=== PATIENT | female | born 1950 | race Caucasian/White ===

== ENCOUNTER 2023-09-29 23:58 | Inpatient (IN) | payer OTHER ==
[~2023-09-29] VITALS: Ht 160 cm; Wt 74.8 kg
[2023-09-30 00:15] VITALS: BP 152/84; PULSE 70; RESP 16; TEMP 97.4; O2SAT 97
[2023-09-30] MEDS ORDERED: ATROPINE 1 MG/10 ML SYR IVP ONE (00:28)
[2023-09-30 00:50] LABS: BASOPHILS % (AUTO) 0.4 % (0.0-2.0); EOSINOPHILS # (AUTO) 0.1 K/uL (0-0.4); HEMATOCRIT 38.9 % (36-48); LYMPHOCYTES # (AUTO) 3.5 K/uL (2.5-16.5); LYMPHOCYTES % (AUTO) 31.2 % (20.5-51.1); MEAN CORPUSCULAR HEMOGLOBIN 30 pg (27-31); MEAN CORPUSCULAR HGB CONC 34 g/dL (33-37); MEAN CORPUSCULAR VOLUME 90.3 fL (80-94); MONOCYTES % (AUTO) 8.5 % (1.7-9.3); NEUTROPHILS # (AUTO) 6.6 K/uL (1.8-7.7); NEUTROPHILS % (AUTO) 58.9 % (42.2-75.2); PLATELET COUNT (AUTO) 215 K/uL (140-450); RED BLOOD CELL COUNT(AUTO) 4.31 MIL/uL (4.20-5.40); RED CELL DISTRIBUTION WIDTH 13.5 % (11.6-13.7); WHITE BLOOD COUNT (AUTO) 11.3 K/uL (4.8-10.8)
[2023-09-30 01:01] LABS: ANION GAP 10.1 (8-16); CALCIUM 9.2 mg/dL (8.5-10.1); CARBON DIOXIDE 34.1 mmol/L (21-32); CHLORIDE 100 mmol/L (98-107); CREATININE 0.8 mg/dL (0.6-1.3); GLUCOSE 148 mg/dL (74-106); POTASSIUM 3.2 mmol/L (3.5-5.1); SODIUM SERUM 141 mmol/L (136-145); UREA NITROGEN, BLOOD 19 mg/dL (7-18)
[2023-09-30 01:10] LABS: MAGNESIUM 1.9 mg/dL (1.8-2.4)
[2023-09-30] MEDS ORDERED: NACL 0.9% 1,000 ML IV ONE (01:10)
[2023-09-30 02:57] LABS: APPEARANCE,URINE CLEAR (CLEAR); BILIRUBIN,URINE NEGATIVE (NEGATIVE); BLOOD, URINE NEGATIVE (NEGATIVE); COLOR,URINE YELLOW (YELLOW); LEUKOCYTE ESTERASE ,URINE TRACE (NEGATIVE); NITRITE, URINE NEGATIVE (NEGATIVE); PROTEIN,URINE NEGATIVE (NEGATIVE); UGLUCOSE 3+ (NEGATIVE); UROBILINOGEN,URINE 0.2 EU/dL (0.2 - 1)
[2023-09-30 03:01] LABS: BACTERIA,URINE 10-30 (MOD) /HPF (None Seen); MUCUS,URINE 1+ /LPF (None Seen); RBC,URINE 0-5 /HPF (0-5); SQUAMOUS EPITHELIAL CELL,UR 4-10 (MOD) /LPF (0-3 (FEW))
[2023-09-30] MEDS ORDERED: POTASSIUM CHLORIDE 10 MEQ TABER PO ONE ×2 (03:15→04:35)
[2023-09-30] MEDS ORDERED: GLIP10TE PO (03:21)
[2023-09-30] MEDS ORDERED: ATOR40TA PO (03:21)
[2023-09-30] MEDS ORDERED: KEP500 PO (03:21)
[2023-09-30] MEDS ORDERED: METF-1139 PO (03:21)
[2023-09-30] MEDS ORDERED: METO25TE2 PO (03:21)
[2023-09-30] MEDS ORDERED: EMPA25TA PO (03:21)
[2023-09-30 03:32] LABS: LACTIC ACID 1.9 mmol/L (0.4-2.0)
[2023-09-30] MEDS ORDERED: cefTRIAXone 1,000 MG VIAL ONE (04:34)
[2023-09-30 05:19] VITALS: O2SAT 100
[2023-09-30] MEDS: HYDROcodone/APAP 5/325 MG 1 TAB TAB PO PRN (12:53)
[2023-09-30 15:29] VITALS: PULSE 68; RESP 15
[2023-09-30 16:04] VITALS: PULSE 72
[2023-09-30] MEDS ORDERED: DEXTROSE 50% 50 ML SYR IVP PRN (17:15)
[2023-09-30 20:00] VITALS: BP 128/70; PULSE 66; PULSE 67; RESP 15; RESP 18; TEMP 97.9; O2SAT 95
[2023-09-30] MEDS: levETIRAcetam 500 MG TAB PO SCH (20:11)
[2023-09-30] MEDS: BLOOD GLUCOSE MONITORING 1 DEV DEV FS SCH (20:17)
[2023-09-30] MEDS: INSULIN LISPRO SLIDING SCALE 100 UNITS/ML VIAL SUBQ PRN (20:22)
[2023-10-01] VITALS: BP 125/68; PULSE 66; PULSE 67; RESP 18; TEMP 97.7; O2SAT 97
[2023-10-01 04:00] VITALS: BP 137/69; PULSE 67; PULSE 76; RESP 18; TEMP 97.7; O2SAT 97
[2023-10-01] MEDS: HYDROcodone/APAP 5/325 MG 1 TAB TAB PO PRN ×2 (04:03→17:46)
[2023-10-01 06:47] LABS: BASOPHILS % (AUTO) 0.4 % (0.0-2.0); EOSINOPHILS # (AUTO) 0.2 K/uL (0-0.4); EOSINOPHILS % (AUTO) 2.6 % (0.0-4.0); HEMOGLOBIN 12.5 g/dL (12.0-16.0); LYMPHOCYTES # (AUTO) 2.9 K/uL (2.5-16.5); LYMPHOCYTES % (AUTO) 37.2 % (20.5-51.1); MEAN CORPUSCULAR HEMOGLOBIN 31 pg (27-31); MEAN CORPUSCULAR HGB CONC 34 g/dL (33-37); MEAN CORPUSCULAR VOLUME 90.2 fL (80-94); MONOCYTES # (AUTO) 0.7 K/uL (0.8-1.0); MONOCYTES % (AUTO) 9.3 % (1.7-9.3); NEUTROPHILS # (AUTO) 3.9 K/uL (1.8-7.7); NEUTROPHILS % (AUTO) 50.5 % (42.2-75.2); PLATELET COUNT (AUTO) 214 K/uL (140-450); RED CELL DISTRIBUTION WIDTH 13.8 % (11.6-13.7); WHITE BLOOD COUNT (AUTO) 7.8 K/uL (4.8-10.8)
[2023-10-01] MEDS: BLOOD GLUCOSE MONITORING 1 DEV DEV FS SCH ×4 (06:52→20:10)
[2023-10-01] MEDS: INSULIN LISPRO SLIDING SCALE 100 UNITS/ML VIAL SUBQ PRN ×2 (06:53→20:12)
[2023-10-01 08:00] VITALS: BP 127/58; PULSE 68; RESP 15; RESP 18; TEMP 96.9; O2SAT 96
[2023-10-01] MEDS: METOPROLOL SUCCINATE 50 MG TABER PO SCH (08:25)
[2023-10-01] MEDS: levETIRAcetam 500 MG TAB PO SCH ×2 (08:26→20:08)
[2023-10-01] MEDS: ATORVASTATIN 20 MG TAB PO SCH (08:26)
[2023-10-01] MEDS: ASPIRIN 81 MG TAB.CHEW PO SCH (08:27)
[2023-10-01 09:38] LABS: ALANINE AMINOTRANSFERASE 17 U/L (12-78); ALBUMIN 2.9 g/dL (3.4-5.0); ALKALINE PHOSPHATASE 67 U/L (50-136); ANION GAP 16.4 (8-16); ASPARTATE AMINOTRANSFERASE 12 U/L (15-37); CALCIUM 9.1 mg/dL (8.5-10.1); CARBON DIOXIDE 23.6 mmol/L (21-32); CHLORIDE 104 mmol/L (98-107); CREATININE 0.5 mg/dL (0.6-1.3); GLUCOSE 113 mg/dL (74-106); MAGNESIUM 1.9 mg/dL (1.8-2.4); SODIUM SERUM 140 mmol/L (136-145); TOTAL BILIRUBIN 0.4 mg/dL (0.0-1.0); TOTAL PROTEIN, SERUM 6.6 g/dL (6.4-8.2); UREA NITROGEN, BLOOD 16 mg/dL (7-18)
[2023-10-01 12:00] VITALS: BP 119/61; PULSE 71; RESP 18; TEMP 97.6; O2SAT 96
[2023-10-01 15:53] LABS: CHOL/HDL RATIO 2.4 (1-4.5)
[2023-10-01 16:00] VITALS: BP 120/89; PULSE 71; RESP 18; TEMP 97.8; O2SAT 98
[2023-10-01] MEDS ORDERED: hydrALAZINE 25 MG TAB PO PRN (16:50)
[2023-10-01 20:00] VITALS: BP 116/83; PULSE 70; PULSE 72; RESP 18; TEMP 97.1; O2SAT 96
[2023-10-02] VITALS: BP 141/70; PULSE 70; PULSE 73; RESP 18; TEMP 96.8; O2SAT 96
[2023-10-02 04:00] VITALS: BP 127/81; PULSE 71; PULSE 73; RESP 18; TEMP 96.1; O2SAT 96
[2023-10-02] MEDS: BLOOD GLUCOSE MONITORING 1 DEV DEV FS SCH ×4 (06:36→20:08)
[2023-10-02 08:00] VITALS: BP 121/67; PULSE 62; PULSE 71; PULSE 84; RESP 16; TEMP 97; O2SAT 97
[2023-10-02] MEDS: levETIRAcetam 500 MG TAB PO SCH ×2 (09:29→20:07)
[2023-10-02] MEDS: ASPIRIN 81 MG TAB.CHEW PO SCH (09:29)
[2023-10-02] MEDS: ATORVASTATIN 20 MG TAB PO SCH (09:30)
[2023-10-02] MEDS: METOPROLOL SUCCINATE 50 MG TABER PO SCH (09:30)
[2023-10-02 12:00] VITALS: BP 153/77; PULSE 67; RESP 18; TEMP 97; O2SAT 98
[2023-10-02] MEDS ORDERED: LACTULOSE 20 GM/30 ML UDC PO ONE (14:55)
[2023-10-02 16:00] VITALS: BP 148/75; PULSE 62; PULSE 64; RESP 18; TEMP 97.2; O2SAT 97
[2023-10-02] MEDS: INSULIN LISPRO SLIDING SCALE 100 UNITS/ML VIAL SUBQ PRN (16:44)
[2023-10-02] MEDS: HYDROcodone/APAP 5/325 MG 1 TAB TAB PO PRN (16:45)
[2023-10-02 20:00] VITALS: BP 150/84; PULSE 68; PULSE 72; RESP 18; TEMP 97.3; O2SAT 96
[2023-10-02] MEDS: DOCUSATE SODIUM 100 MG GELCAP PO SCH (20:08)
[2023-10-03] VITALS (8 sets, daily range): BP systolic 117–146; BP diastolic 64–73; PULSE 66–83; RESP 18; TEMP 97–97.6; O2SAT 95–98
[2023-10-03] MEDS: BLOOD GLUCOSE MONITORING 1 DEV DEV FS SCH ×4 (06:34→21:50)
[2023-10-03 07:05] LABS: ANION GAP 11.8 (8-16); CARBON DIOXIDE 28.1 mmol/L (21-32); CHLORIDE 103 mmol/L (98-107); CREATININE 0.5 mg/dL (0.6-1.3); GLUCOSE 115 mg/dL (74-106); POTASSIUM 3.9 mmol/L (3.5-5.1); SODIUM SERUM 139 mmol/L (136-145); UREA NITROGEN, BLOOD 15 mg/dL (7-18)
[2023-10-03 09:13] LABS: BASOPHILS % (AUTO) 0.5 % (0.0-2.0); EOSINOPHILS # (AUTO) 0.2 K/uL (0-0.4); EOSINOPHILS % (AUTO) 2.7 % (0.0-4.0); HEMATOCRIT 38.6 % (36-48); HEMOGLOBIN 12.9 g/dL (12.0-16.0); LYMPHOCYTES # (AUTO) 3.2 K/uL (2.5-16.5); LYMPHOCYTES % (AUTO) 39.6 % (20.5-51.1); MEAN CORPUSCULAR HEMOGLOBIN 30 pg (27-31); MEAN CORPUSCULAR HGB CONC 34 g/dL (33-37); MEAN CORPUSCULAR VOLUME 90.1 fL (80-94); MONOCYTES # (AUTO) 0.9 K/uL (0.8-1.0); MONOCYTES % (AUTO) 10.5 % (1.7-9.3); NEUTROPHILS # (AUTO) 3.8 K/uL (1.8-7.7); NEUTROPHILS % (AUTO) 46.7 % (42.2-75.2); PLATELET COUNT (AUTO) 236 K/uL (140-450); RED BLOOD CELL COUNT(AUTO) 4.28 MIL/uL (4.20-5.40); RED CELL DISTRIBUTION WIDTH 13.5 % (11.6-13.7); WHITE BLOOD COUNT (AUTO) 8.1 K/uL (4.8-10.8)
[2023-10-03] MEDS: ATORVASTATIN 20 MG TAB PO SCH (10:16)
[2023-10-03] MEDS: DOCUSATE SODIUM 100 MG GELCAP PO SCH ×2 (10:16→21:42)
[2023-10-03] MEDS: METOPROLOL SUCCINATE 50 MG TABER PO SCH (10:16)
[2023-10-03] MEDS: levETIRAcetam 500 MG TAB PO SCH ×2 (10:16→21:42)
[2023-10-03] MEDS: ASPIRIN 81 MG TAB.CHEW PO SCH (10:17)
[2023-10-03] MEDS: INSULIN LISPRO SLIDING SCALE 100 UNITS/ML VIAL SUBQ PRN ×3 (12:31→21:46)
[2023-10-04] VITALS: BP 142/80; PULSE 68; PULSE 74; RESP 18; TEMP 97.6; O2SAT 97
[2023-10-04 04:00] VITALS: BP 122/62; PULSE 68; PULSE 71; RESP 18; TEMP 97.8; O2SAT 97
[2023-10-04] MEDS: BLOOD GLUCOSE MONITORING 1 DEV DEV FS SCH ×4 (06:41→20:20)
[2023-10-04 08:00] VITALS: BP 123/59; PULSE 67; RESP 18; RESP 20; TEMP 98.1; O2SAT 99
[2023-10-04] MEDS: METOPROLOL SUCCINATE 50 MG TABER PO SCH (09:00)
[2023-10-04] MEDS: levETIRAcetam 500 MG TAB PO SCH ×2 (10:13→20:16)
[2023-10-04] MEDS: DOCUSATE SODIUM 100 MG GELCAP PO SCH ×2 (10:14→20:16)
[2023-10-04] MEDS: ASPIRIN 81 MG TAB.CHEW PO SCH (10:14)
[2023-10-04] MEDS: ATORVASTATIN 20 MG TAB PO SCH (10:14)
[2023-10-04] MEDS: INSULIN LISPRO SLIDING SCALE 100 UNITS/ML VIAL SUBQ PRN (13:55)
[2023-10-04 16:00] VITALS: BP 151/82; PULSE 69; RESP 20; TEMP 97.2; O2SAT 99
[2023-10-04 20:00] VITALS: BP 149/80; PULSE 96; RESP 20; TEMP 97; O2SAT 98
[2023-10-05] VITALS: BP 147/76; PULSE 72; RESP 19; TEMP 97.2; O2SAT 96
[2023-10-05 04:00] VITALS: BP 142/66; PULSE 66; RESP 20; TEMP 98.1; O2SAT 98
[2023-10-05] MEDS: BLOOD GLUCOSE MONITORING 1 DEV DEV FS SCH ×2 (06:30→11:54)
[2023-10-05 08:00] VITALS: PULSE 70
[2023-10-05 08:49] VITALS: BP 140/73; PULSE 66; RESP 18; TEMP 96.9; O2SAT 97
[2023-10-05] MEDS: DOCUSATE SODIUM 100 MG GELCAP PO SCH (08:53)
[2023-10-05] MEDS: ASPIRIN 81 MG TAB.CHEW PO SCH (08:53)
[2023-10-05] MEDS: levETIRAcetam 500 MG TAB PO SCH (08:53)
[2023-10-05] MEDS: ATORVASTATIN 20 MG TAB PO SCH (08:54)
[2023-10-05] MEDS: METOPROLOL SUCCINATE 50 MG TABER PO SCH ×2 (08:56→12:10)
[2023-10-05] MEDS: INSULIN LISPRO SLIDING SCALE 100 UNITS/ML VIAL SUBQ PRN (12:13)
== END 2023-10-05 15:55 | disposition home or self-care (01) | DRG 53 ==
LOC: MED 23:58 → MTU 09-30 14:26
PROVIDERS: ADMIT Internal Medicine; ATTEND Internal Medicine
PROC: 4A10X4Z Monitoring of Central Nervous Electrical Activity, External Approach (ICD-10-PCS; principal; 2023-10-03)
DX: G40.909 Epilepsy, unspecified, not intractable, without status epilepticus (principal); I63.9 Cerebral infarction, unspecified; E44.0 Moderate protein-calorie malnutrition; E11.9 Type 2 diabetes mellitus without complications; I10 Essential (primary) hypertension; E78.5 Hyperlipidemia, unspecified; I25.10 Atherosclerotic heart disease of native coronary artery without angina pectoris; E66.9 Obesity, unspecified; Z68.29 Body mass index [BMI] 29.0-29.9, adult; N39.0 Urinary tract infection, site not specified; E87.6 Hypokalemia
CPT/HCPCS: 36415; 70450; 71045; 80048; 80053; 80173; 81001; 82948; 83605; 83735; 84484; 85025; 87040; 87081; 87086; 92526; 93005; 95816; 97112; 97116; 97530; J0461; J0696; J1815; J7030; Q0092; Q9967

== ENCOUNTER 2024-07-08 19:29 | Emergency (ER) | payer OTHER ==
[~2024-07-08] VITALS: Ht 160 cm; Wt 78.2 kg
[~2024-07-08 19:29] MED LIST: ATOR40TA PO; EMPA25TA PO; GLIP10TE1 PO; KEP500 PO; METF-1139 PO; METO25TE2 PO
[2024-07-08 19:39] VITALS: BP 141/71; PULSE 85; RESP 16; TEMP 98.4; O2SAT 97
[2024-07-08 20:03] LABS: BILIRUBIN,URINE NEGATIVE (NEGATIVE); BLOOD, URINE NEGATIVE (NEGATIVE); COLOR,URINE YELLOW (YELLOW); LEUKOCYTE ESTERASE ,URINE 2+ (NEGATIVE); NITRITE, URINE NEGATIVE (NEGATIVE); PROTEIN,URINE TRACE (NEGATIVE); UGLUCOSE NEGATIVE (NEGATIVE); UROBILINOGEN,URINE 0.2 EU/dL (0.2 - 1)
[2024-07-08 20:04] LABS: APPEARANCE,URINE HAZY (CLEAR)
[2024-07-08 20:14] LABS: BACTERIA,URINE 2+ /HPF (None Seen); MUCUS,URINE 2+ /LPF (None Seen)
[2024-07-08] MEDS ORDERED: LOPE-289 PO (20:49)
[2024-07-08] MEDS ORDERED: IBUP-2213 PO (20:49)
[2024-07-08] MEDS ORDERED: CIPR500T4 PO (20:49)
[2024-07-08] MEDS ORDERED: ONDA8TAB87 PO (20:49)
[2024-07-08 20:58] VITALS: BP 141/71; PULSE 85; RESP 16; TEMP 98.4; O2SAT 97
== END 2024-07-08 20:58 | disposition home or self-care (01) ==
LOC: MED 19:29
DX: N39.0 Urinary tract infection, site not specified (principal); R11.2 Nausea with vomiting, unspecified; R19.7 Diarrhea, unspecified; E11.9 Type 2 diabetes mellitus without complications; I10 Essential (primary) hypertension; Z86.69 Personal history of other diseases of the nervous system and sense organs; Z79.84 Long term (current) use of oral hypoglycemic drugs; Z90.49 Acquired absence of other specified parts of digestive tract; Z98.890 Other specified postprocedural states; Z79.899 Other long term (current) drug therapy
CPT/HCPCS: 81001; 87086; 99283